=== PATIENT | male | born 1965 | race Caucasian/White ===

== ENCOUNTER 2017-10-08 14:58 | Outpatient (CLI) | payer OTHER ==
[~2017-10-08 14:58] MED LIST: COLCHICINE0.6 MG PO; DIOVAN160 M1 PO; ULORIC80 MG PO
== END 2017-10-08 15:01 | disposition home or self-care (01) ==
LOC: SONOGRAMA 14:58 → MAMO-SONO 15:15
DX: N18.9 Chronic kidney disease, unspecified (principal); I11.9 Hypertensive heart disease without heart failure; I13.10 Hypertensive heart and chronic kidney disease without heart failure, with stage 1 through stage 4 chronic kidney disease, or unspecified chronic kidney disease